=== PATIENT | male | born 1975 | race Hispanic/Latino ===

== ENCOUNTER 2018-01-24 08:59 | Emergency (ER) | payer MEDICAID ==
[~2018-01-24 08:59] MED LIST: ANAS1TAB7 PO; HYDR12.530 PO; INSLAN SQ; INSU100I3 SQ; PANT40TA25 PO; PRAV20TA4 PO; PREG100C PO
== END 2018-01-24 12:40 | disposition home or self-care (01) ==
LOC: EDH 08:59
DX: M54.30 Sciatica, unspecified side (principal); G89.29 Other chronic pain; E11.9 Type 2 diabetes mellitus without complications; Z79.4 Long term (current) use of insulin; Z87.891 Personal history of nicotine dependence
CPT/HCPCS: 72100